=== PATIENT | male | born 1985 | race Caucasian/White ===

== ENCOUNTER 2017-07-21 14:50 | Emergency (ER) | payer OTHER ==
[2017-07-21] MEDS ORDERED: Sodium Chloride 0.9% 10 ML Syringe FLUSH PRN (15:24)
--- NOTE | 2017-07-21 15:38 | EDM.PDOC ---
ED HPI GENERAL MEDICAL PROBLEM - General Chief Complaint: Chest Pain Stated Complaint: CHEST TIGHTNESS AND TINGLING Time Seen by Provider: 07/21/17 15:14 Source of Information: Reports: Patient History Limitations: Reports: No Limitations - History of Present Illness INITIAL COMMENTS - FREE TEXT/NARRATIVE: Patient is a 32-year-old male who presents to the ED complaining of left-sided chest tightness, tingling feeling, and palpitations. Upon admission to the ED symptoms have resolved. 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 States over the past 3 weeks symptoms have come and go on a intermittent basis while watching TV, sleeping, laying around, and while at work. Today while at work he was performing maintenance on his truong and started having these symptoms. He was not performing any strenuous activities. States when it comes about feels like his heart is pounding out of his chest. Becomes anxious and has a symptoms as dictated above. At no time does he develop any shortness of breath, dizziness, presyncope/syncopal episodes, nausea/vomiting, diaphoresis, or any additional complaints. He does believe this may related to anxiety/stressed out. He has been working quite hard recently. Patient does travel from [place] to [place] to work 20+ days in a row. He has no history of first degree relative with coronary disease. He denies taking any medications currently. Denies any recent history of smoking or recreational drug use. States he quit smoking 1ppd every two days this past spring. States he drinks approximately 2 beers every week. Caffeine use 2 cup of coffee a day during the winter. Patient does admit to utilizing cocaine as a adolescent. States he stopped using when his nose started to bleed. Unclear duration and amount used. Left Chest Pain Score (Numeric/FACES): 2 - Related Data Allergies Allergy/AdvReac Type Severity Reaction Status Date / Time meperidine [From Demerol] Allergy Swelling Verified 07/21/17 15:06 Home Meds: Home Meds . [No Known Home Meds] 07/21/17 [History] Past Medical History Musculoskeletal History: Reports: Other (See Below) Other Musculoskeletal History: right wrist surgery Social & Family History - Tobacco Use Smoking Status *Q: Former Smoker Used Tobacco, but Quit: Yes Month Tobacco Last Used: november 2016 ED ROS GENERAL - Review of Systems Review Of Systems: ROS reveals no pertinent complaints other than HPI. ED EXAM, GENERAL - Physical Exam Exam: See Below Exam Limited By: No Limitations General Appearance: Alert, WD/WN, No Apparent Distress Ears: Hearing Grossly Normal Nose: Normal Inspection Throat/Mouth: Normal Voice, No Airway Compromise Head: Atraumatic, Normocephalic Neck: Normal Inspection, Supple Respiratory/Chest: No Respiratory Distress, Lungs Clear, Normal Breath Sounds, Chest Non-Tender Cardiovascular: Normal Peripheral Pulses, Regular Rate, Rhythm, No Murmur Peripheral Pulses: 2+: Radial (L), Radial (R) GI/Abdominal: Normal Bowel Sounds, Soft, Non-Tender, No Organomegaly, No Distention Back Exam: Normal Inspection Extremities: Normal Inspection, Normal Range of Motion, Non-Tender, No Pedal Edema, Normal Capillary Refill Neurological: Alert, Oriented, CN II-XII Intact, Normal Cognition, No Motor/ Sensory Deficits Psychiatric: Normal Affect, Normal Mood Skin Exam: Warm, Dry, Intact, Normal Color, No Rash Course - Vital Signs Last Recorded V/S: Last Vital Signs Temp 97.8 F 07/21/17 14:57 Pulse 75 07/21/17 16:21 Resp 18 07/21/17 16:21 BP 135/84 07/21/17 16:21 Pulse Ox 97 07/21/17 16:21 - Orders/Labs/Meds Orders: Active Orders 24 hr Category Date Time Status EKG Documentation Completion [RC] STAT Care 07/21/17 15:25 Active Holter Monitor 48 Hours [RC] .PRN Care 07/21/17 16:50 Active Peripheral IV Care [RC] . DIRECTED Care 07/21/17 15:25 Active Chest 1V Frontal [CR] Stat Exams 07/21/17 15:25 Taken DRUG SCREEN, URINE [URCHEM] Stat Lab 07/21/17 15:25 Uncollected Sodium Chloride 0.9% [Saline Flush] Med 07/21/17 15:24 Active 10 ml FLUSH ASDIRECTED PRN Peripheral IV Insertion Adult [OM.PC] Stat Oth 07/21/17 15:25 Ordered Medication Orders Sodium Chloride (Saline Flush) 10 ml FLUSH ASDIRECTED PRN PRN Reason: Keep Vein Open Last Admin: 07/21/17 15:35 Dose: 10 ml Labs: Laboratory Tests 07/21/17 07/21/17 07/21/17 Range/Units 15:10 15:10 15:10 WBC 8.43 (4.23-9.07) K/mm3 RBC 5.24 (4.63-6.08) M/mm3 Hgb 15.0 (13.7-17.5) gm/L Hct 42.4 (40.1-51.0) % MCV 80.9 (79.0-92.2) fl MCH 28.6 (25.7-32.2) pg MCHC 35.4 (32.2-35.5) g/dl RDW Std Deviation 39.6 (35.1-43.9) fL Plt Count 262 (163-337) K/mm3 MPV 10.6 (9.4-12.3) fl Neut % (Auto) 49.7 (34.0-67.9) % Lymph % (Auto) 38.9 (21.8-53.1) % [place] % (Auto) 10.0 (5.3-12.2) % Eos % (Auto) 0.9 (0.8-7.0) Baso % (Auto) 0.4 (0.1-1.2) % Neut # (Auto) 4.19 (1.78-5.38) K/mm3 Lymph # (Auto) 3.28 (1.32-3.57) K/mm3 [place] # (Auto) 0.84 H (0.30-0.82) K/mm3 Eos # (Auto) 0.08 (0.04-0.54) K/mm3 Baso # (Auto) 0.03 (0.01-0.08) K/mm3 PT 11.3 (8.0-13.0) SECONDS INR 1.03 Sodium 141 (136-145) mEq/L Potassium 3.8 (3.5-5.1) mEq/L Chloride 106 (98-107) mEq/L Carbon Dioxide 25 (21-32) mEq/L Anion Gap 13.8 (5-15) BUN 18 (7-18) mg/dL Creatinine 1.2 (0.7-1.3) mg/dL Est Cr Clr Drug Dosing 98.03 mL/min Estimated GFR (MDRD) > 60 (>60) mL/min BUN/Creatinine Ratio 15.0 (14-18) Glucose 88 (74-106) mg/dL Calcium 9.2 (8.5-10.1) mg/dL Total Bilirubin 0.4 (0.2-1.0) mg/dL AST 29 (15-37) U/L ALT 54 (16-63) U/L Alkaline Phosphatase 45 L (46-116) U/L Troponin I < 0.017 (0.00-0.056) ng/mL C-Reactive Protein 1.3 H* (<1.0) mg/dL Total Protein 7.7 (6.4-8.2) g/dl Albumin 4.1 (3.4-5.0) g/dl Globulin 3.6 gm/dL Albumin/Globulin Ratio 1.1 (1-2) TSH 3rd Generation 1.150 (0.358-3.74) uIU/mL 07/21/17 Range/Units 16:50 WBC (4.23-9.07) K/mm3 RBC (4.63-6.08) M/mm3 Hgb (13.7-17.5) gm/L Hct (40.1-51.0) % MCV (79.0-92.2) fl MCH (25.7-32.2) pg MCHC (32.2-35.5) g/dl RDW Std Deviation (35.1-43.9) fL Plt Count (163-337) K/mm3 MPV (9.4-12.3) fl Neut % (Auto) (34.0-67.9) % Lymph % (Auto) (21.8-53.1) % [place] % (Auto) (5.3-12.2) % Eos % (Auto) (0.8-7.0) Baso % (Auto) (0.1-1.2) % Neut # (Auto) (1.78-5.38) K/mm3 Lymph # (Auto) (1.32-3.57) K/mm3 [place] # (Auto) (0.30-0.82) K/mm3 Eos # (Auto) (0.04-0.54) K/mm3 Baso # (Auto) (0.01-0.08) K/mm3 PT (8.0-13.0) SECONDS INR Sodium (136-145) mEq/L Potassium (3.5-5.1) mEq/L Chloride (98-107) mEq/L Carbon Dioxide (21-32) mEq/L Anion Gap (5-15) BUN (7-18) mg/dL Creatinine (0.7-1.3) mg/dL Est Cr Clr Drug Dosing mL/min Estimated GFR (MDRD) (>60) mL/min BUN/Creatinine Ratio (14-18) Glucose (74-106) mg/dL Calcium (8.5-10.1) mg/dL Total Bilirubin (0.2-1.0) mg/dL AST (15-37) U/L ALT (16-63) U/L Alkaline Phosphatase (46-116) U/L Troponin I < 0.017 (0.00-0.056) ng/mL C-Reactive Protein (<1.0) mg/dL Total Protein (6.4-8.2) g/dl Albumin (3.4-5.0) g/dl Globulin gm/dL Albumin/Globulin Ratio (1-2) TSH 3rd Generation (0.358-3.74) uIU/mL Meds: Medications Generic Name Dose Route Start Last Admin Trade Name Freq PRN Reason Stop Dose Admin Sodium Chloride 10 ml 07/21/17 15:24 07/21/17 15:35 Saline Flush FLUSH 10 ml ASDIRECTED PRN Administration Keep Vein Open Discontinued Medications Generic Name Dose Route Start Last Admin Trade Name Freq PRN Reason Stop Dose Admin Aspirin 324 mg 07/21/17 15:51 07/21/17 16:19 Aspirin PO 07/21/17 15:52 324 mg ONETIME ONE Administration - Re-Assessments/Exams Free Text/Narrative Re-Assessment/Exam: EKG accelerated junctional rhythm with a left bundle branch block at a rate of 74. No additional EKGs to compare with. Patient admits to never having a EKG obtained. Initial labs and studies include CBC, chem 14, troponin, TSH, chest x-ray, crp , and urine drug tox. Ordered ASA 324mg PO. Chest x-ray reveals diffuse pulmonary congestion with bulbous heart. Labs reviewed: CBC and chemistry panel essentially normal. Troponin less than 0.017. CRP 1.3. TSH is 1.150. [address] Walker on-call [employer] with [facility] at [facility]. Will have Heart-Lung Scheduling call the patient this coming Monday for an appointment to have echocardiogram with evaluation following. Agreed 48 hour Holter monitor would be appropriate. Patient may have nonischemic cardiomyopathy secondary to cocaine use or viral infection. Symptoms may be exacerbated with caffeine use. 1638 Discussed plan with patient. Patient states he has some mild tingling to the left chest. No pressure or tightness present. No sensation of having palpitations. No additional complaints. Will go ahead and obtain a 3 hour troponin from admission to the ED prior to discharging him. Patient continues to go in and out of junctional/sinus rhythm. Ordered holter monitor and repeat troponin. 07/21/17 19:03 2nd troponin unchanged. Discharged home. Departure - Departure Time of Disposition: 19:03 Disposition: Home, Self-Care 01 Condition: Good Clinical Impression: Sensation of chest tightness, Heart palpitations Arrhythmia Qualifiers: Arrhythmia type: other cardiac arrhythmia Qualified Code(s): I49.8 - Other specified cardiac arrhythmias Referrals: Darek Walker MD [Ordering Only Provider] - Isidra Parikh [Physician] - Forms: ED Department Discharge Additional Instructions: As discussed Dr. Walker with Heart-Lung clinic at [facility] and Kar will see her next week with echocardiogram to be obtained. They will call you Monday morning to schedule an appointment. Return the 48 hour Holter monitor as instructed this coming Monday. So that the results can be forwarded to Dr. Walker. Refrain from caffeine use. Ensure adequate sleep. Refrain from any activities that cause worsening of symptoms. Return to the ED if you develop any new or worsening symptoms. - My Orders Last 24 Hours: My Active Orders 07/21/17 15:24 Sodium Chloride 0.9% [Saline Flush] 10 ml FLUSH ASDIRECTED PRN 07/21/17 15:25 EKG Documentation Completion [RC] STAT Peripheral IV Care [RC] . DIRECTED Chest 1V Frontal [CR] Stat DRUG SCREEN, URINE [URCHEM] Stat Peripheral IV Insertion Adult [OM.PC] Stat 07/21/17 16:50 Holter Monitor 48 Hours [RC] .PRN - Assessment/Plan Last 24 Hours: My Active Orders 07/21/17 15:24 Sodium Chloride 0.9% [Saline Flush] 10 ml FLUSH ASDIRECTED PRN 07/21/17 15:25 EKG Documentation Completion [RC] STAT Peripheral IV Care [RC] . DIRECTED Chest 1V Frontal [CR] Stat DRUG SCREEN, URINE [URCHEM] Stat Peripheral IV Insertion Adult [OM.PC] Stat 07/21/17 16:50 Holter Monitor 48 Hours [RC] .PRN
[2017-07-21] MEDS ORDERED: Aspirin 81 MG Tab.Chew PO ONE (15:51)
--- NOTE | 2017-07-24 06:46 | CR ---
Chest: Portable view of the chest was obtained. Comparison: No prior chest x-ray. Heart size and mediastinum are within normal limits for portable technique. Lungs are clear. Bony structures are grossly intact. Impression: 1. Nothing acute is identified on portable chest x-ray. Diagnostic code #1
== END 2017-07-21 19:10 | disposition home or self-care (01) ==
LOC: JD.ED 14:50
DX: I49.8 Other specified cardiac arrhythmias (principal); Z87.891 Personal history of nicotine dependence; Z88.5 Allergy status to narcotic agent
CPT/HCPCS: 36415; 71010; 80053; 84443; 84484; 85025; 85610; 86140; 93005; 99285; A9270; J7050